=== PATIENT | male | born 1965 | race African-American/Black ===

== ENCOUNTER 2024-01-13 02:29 | Inpatient (IN) | payer MEDICAID ==
[~2024-01-13] VITALS: Ht 182.9 cm; Wt 108.0 kg
[2024-01-13] MEDS: MORPHINE SULFATE 4 MG/ML INJ (FOR IV/IM USE) IV STA (06:18)
[2024-01-13] MEDS: SODIUM CHLORIDE 0.9% 1,000 ML IV ONE (06:50)
[2024-01-13] MEDS: CEFAZOLIN 1000MG PREMIX 50 ML IV ONE (06:50)
[2024-01-13] MEDS: HYDROMORPHONE HCL/PF 2MG/ML CPJ IV ONE (08:35)
[2024-01-13 08:58] LABS: BASOPHILS % 0.3 % (0.0-2.0); DIFFERENTIAL COMMENT 0; EOSINOPHILS % 2.2 % (0.0-5.0); HEMOGLOBIN. 9.5 g/dL (14.0-18.0); LYMPHOCYTES % 19.4 % (20.0-50.0); MEAN CORPUSCULAR HEMOGLOBIN 24.4 pg (28.0-32.0); MEAN CORPUSCULAR HGB CONC 31.6 g/dL (31.0-37.0); MEAN CORPUSCULAR VOLUME 77.3 fL (80.0-94.0); MEAN PLATELET VOLUME 7.5 fl (7.4-10.4); NEUTROPHILS % 68.1 % (40.0-76.0); PLATELET 319 x1000/uL (130-400); RED BLOOD CELL COUNT 3.88 mill/uL (4.7-6.1); RED CELL DISTRIBUTION WIDTH 16.4 % (11.6-14.6); WHITE BLOOD COUNT 7.6 x1000/uL (4.5-11.0)
[2024-01-13 09:15] LABS: INR 0.9; PROTHROMBIN TIME 10.6 sec (9.6-11.0)
[2024-01-13 09:22] LABS: ALANINE AMINOTRANSFERASE 44 IU/L (10-49); ALBUMIN 4.4 g/dL (3.2-4.8); ASPARTATE AMINOTRANSFERASE 39 IU/L (<34); BILIRUBIN TOTAL 0.2 mg/dL (0.1-1.0); CALCIUM 8.3 mg/dL (8.7-10.4); CARBON DIOXIDE 28 mEq/L (21-32); CHLORIDE 104 mEq/L (98-107); CREATININE 0.8 mg/dL (0.6-1.3); GLUCOSE 105 mg/dL (70-105); POTASSIUM 3.6 mEq/L (3.5-5.1); PROTEIN TOTAL 7.6 g/dL (6.0-8.3); SODIUM 136 mEq/L (136-145); UREA NITROGEN BLOOD 10 mg/dL (9-23)
[2024-01-13] MEDS ORDERED: TETANUS AND DIPHTHERIA TOX/PF 0.5ML SYR (ADULT) IM ONE (22:45)
[2024-01-13] MEDS ORDERED: NALOXONE HCL 0.4MG/ML VIAL IV PRN (23:00)
[2024-01-13] MEDS: HYDROCODONE/ACETAMINOPHEN 10/325MG TABLET PO PRN (23:09)
[2024-01-14] MEDS: TETANUS, DIPHTHERIA, PERTUSSIS VAC/PF 0.5ML (>10YR OLD) IM ONE (00:07)
[2024-01-14 01:16] VITALS: BP 120/68; PULSE 70; RESP 18; TEMP 97.5
[2024-01-14] MEDS ORDERED: HYDROCODONE/ACETAMINOPHEN 10/325MG TABLET PO PRN (01:45)
[2024-01-14] MEDS ORDERED: CLONIDINE 0.1MG TABLET PO PRN (01:45)
[2024-01-14] MEDS: VANCOMYCIN 1.5GM/250ML IV NR (03:30)
[2024-01-14] MEDS: PIPERACILLIN/TAZO 3.375G/50ML 50 ML IV SCH (05:29)
[2024-01-14 07:37] LABS: HEMOGLOBIN 9.9 g/dL (14.0-18.0); MEAN CORPUSCULAR HEMOGLOBIN 25.2 pg (28.0-32.0); MEAN CORPUSCULAR HGB CONC 33.1 g/dL (31.0-37.0); MEAN CORPUSCULAR VOLUME 76.2 fL (80.0-94.0); PLATELET 336 x1000/uL (130-400); RED BLOOD CELL COUNT 3.95 mill/uL (4.7-6.1); RED CELL DISTRIBUTION WIDTH 16.2 % (11.6-14.6); WHITE BLOOD COUNT 9.4 x1000/uL (4.5-11.0)
[2024-01-14 07:38] LABS: CALCIUM 8.2 mg/dL (8.7-10.4); CARBON DIOXIDE 28 mEq/L (21-32); CHLORIDE 101 mEq/L (98-107); CREATININE 0.8 mg/dL (0.6-1.3); GLUCOSE 121 mg/dL (70-105); POTASSIUM 3.4 mEq/L (3.5-5.1); SODIUM 135 mEq/L (136-145); UREA NITROGEN BLOOD 9 mg/dL (9-23)
[2024-01-14 08:00] VITALS: BP 140/86; PULSE 77; RESP 18; TEMP 97.5
[2024-01-14 12:00] VITALS: BP 146/82; PULSE 83; RESP 19; TEMP 98.1
[2024-01-14] MEDS: VANCOMYCIN 1GM/200ML PMX (BAXTER) IV SCH (12:38)
[2024-01-14 16:00] VITALS: BP 114/65; PULSE 82; RESP 19; TEMP 98
[2024-01-14 20:00] VITALS: BP 130/93; PULSE 80; RESP 19; TEMP 99.3
[2024-01-14] MEDS: ACETAMINOPHEN 325MG TABLET PO PRN (21:09)
[2024-01-15] VITALS: BP 96/59; PULSE 92; RESP 16; TEMP 97
[2024-01-15 08:00] VITALS: BP 103/70; PULSE 81; RESP 20; TEMP 98.1
[2024-01-15] MEDS ORDERED: SULF1TAB48 MT (10:07)
[2024-01-15] MEDS ORDERED: AMOX1TAB16 MT (10:07)
[2024-01-15 11:52] VITALS: RESP 20
[2024-01-15] MEDS: KETOROLAC 15MG/ML VIAL IV PRN (11:52)
[2024-01-15 11:59] VITALS: BP 103/70; PULSE 81; TEMP 97.8; O2SAT 98
== END 2024-01-15 12:57 | disposition home or self-care (01) | DRG 383 ==
LOC: ER 02:29 → 6EST 17:45
PROVIDERS: ADMIT Internal Medicine; ATTEND Internal Medicine
DX: L03.012 Cellulitis of left finger (principal); D50.9 Iron deficiency anemia, unspecified; I10 Essential (primary) hypertension; M65.9 Synovitis and tenosynovitis, unspecified
CPT/HCPCS: 36415; 73130; 80048; 80053; 80202; 84145; 85025; 85027; 90715; 93005; 99285; J0690; J1170; J1885; J2270; J2543; J3370; J7030